=== PATIENT | female | born 1935 | race African-American/Black ===

== ENCOUNTER 2018-04-01 11:25 | Inpatient (IN) | payer OTHER ==
[~2018-04-01] VITALS: Ht 170.2 cm; Wt 106.4 kg
[~2018-04-01 11:25] MED LIST: APAP650 PO; ASPIR 8181 MG PO; HYDROCHLOROTHIA25 M1 PO; LEVOTHYROXINE100 MC1 BUCCAL; SIMVASTATIN40 MG PO; ULTRAM 50MG TAB50 MG PO
[2018-04-01 11:56] LABS: HEMOGLOBIN 15.9 gm/dL (12.0-15.0); MCH 28.8 pg (26.0-34.0); MCV 87.3 fL (80.0-100.0); MPV 8.8 fl. (7.2-11.1); RBC 5.5 mil/uL (4.20-5.00); RDW-CV 14.9 % (10.5-14.5); WBC 5.2 thou/uL (4.0-11.0)
[2018-04-01 12:12] LABS: CALCIUM 9.9 mg/dL (8.5-10.1)
[2018-04-01 12:17] LABS: ALBUMIN 3.7 g/dL (3.4-5.0); TOTAL BILIRUBIN 0.5 mg/dL (<0.1-1.0); TOTAL PROTEIN 7.8 g/dL (6.4-8.2)
[2018-04-01 12:34] VITALS: BP 140/95
--- NOTE | 2018-04-01 16:02 | EKG ---
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
--- NOTE | 2018-04-01 17:15 | NUR ---
PATIENT TO 209 VIA BED REPORT GIVEN AT BEDSIDE VITAL SIGNS TAKEN-HR 43 PATIENT WITHOUT C/O PAIN CALL LIGHT IN REACH AND INSTRUCTION GIVEN
--- NOTE | 2018-04-01 17:25 | NUR ---
PATIENT A AND O X 4 BUT DROWSY SB/JUNCTIONAL RATE 30-40S LOW 20 LUNGS CTA/DIM IN BASES O2 2L NC NOT VOIDED SINCE THIS AM LAST BM UNKNOWN BEDREST AT THIS TIME IV L AC 20 GA 1/2 NS AT 75CC/HR L UPPER CHEST INC LIABILITY CLAIMS REPRESENTATIVE- DURABOND INTACT
--- NOTE | 2018-04-01 17:45 | NUR ---
DR NUNEZ NOTIFIED OF PATIENTS STATUS SB/JUNCTIONAL CONSISTENTLY HR 30S ORDERS GIVEN TO NOTIFY DR IF SB AND SYMPTOMATIC WILL CONT TO MONITOR
--- NOTE | 2018-04-01 18:00 | NUR ---
DR NUNEZ NOTIFIED OF PATIENTS STATUS AND REQUEST TO MOVE TO ICU ORDERS TO MOVE TO ICU
[2018-04-01 18:12] VITALS: BP 150/76
--- NOTE | 2018-04-01 18:15 | NUR ---
REPORT GIVEN TO ICU PATIENT AND BELONGINGS MOVED TO ICU BED 2 DAUGHTER JOSSELIN NOTIFIED OF TRANSFER TO ICU
--- NOTE | 2018-04-01 18:23 | CARD ---
[address] [address] CARDIAC CATH REPORT Name: ULISES TAVERA Room: [facility] IN M.R.#: [id number] Admission: 04/01/18 Attend Phys: Dwight Woods MD, F Discharge: Date of : 37 Report #: [id number] THIS REPORT FOR: //name// APPROVED REPORT Study performed: 04/01/2018 13:22:41 Patient Status: In-Patient Room #: Exam: remove pacemaker and leads Indications: atrial lead dislodgement The patient is a 83 year-old female with a history of Sick Sinus Syndrome. Explanted Devices: permanent pacemaker and leads Procedure The patient underwent informed consent. We discussed the details of the procedure including the risks, which include, but not limited to bleeding, infection, vascular damage, cardiac perforation, and pneumothorax. She understood these risks and was willing to proceed. As such, she was brought to the EP/Cardiac Catheterization laboratory in a fasting and sedated state and prepped and draped in a sterile fashion, received IV antibiotics prior to initiation of the procedure and a venogram was performed showing patency of the left axillary vein. The patient underwent conscious sedation, with no related complications. The patient was brought to the EP/Cardiac Catheterization laboratory and the left chest and shoulder were prepped and draped in a sterile manner. During this case, Fluoroscopy and low osmolar contrast were used for imaging. The left subclavian region was infiltrated with 2% Lidocaine subcutaneous anesthesia. A transverse incision was made in the left upper chest cavity. Both leads were noted to be pulled back into the pacemaker pocket. Unable to retract the set screws of the leads. Both leads needed to be advanced and screwed into place. However, this was not an option. It was therefore decided to remove both leads and generator. Complications The patient tolerated the procedure well and there were no complications [place] [address] CARDIAC CATH REPORT Name: ULISES TAVERA Room: [address] IN .R.#: [id number] Admission: 04/01/18 Attend Phys: Dwight Woods MD, F Discharge: Date of : 37 Report #: [id number] Findings Specimens Removed: Yes Estimated Blood Loss: 15 cc Conclusion Removal of pacemaker generator and leads Recommendations New pacemaker and leads will need to be inserted at another setting. <ELECTRONICALLY SIGNED> By: Dwight Woods MD, [facility] 04/01/18 182 22 1823Dnicole Woods MD, FAC /INF
--- NOTE | 2018-04-01 18:32 | NUR ---
PATIENT A AND O X 4, DROWSY SB/JUNCTIONAL 30S-40S LUNGS CTA/DIM IN BASES 02 2L NC NOT VOIDED SINCE AM LAST BM UNKNOWN BEDREST AT THIS TIME IV L AC 20 GA 1/2 NS AT 75CC/HR L UPPER CHEST AREA INC RICKEY-DURABOND INTACT
--- NOTE | 2018-04-01 18:36 | NUR ---
DR NUNEZ NOITIFIED OF SB/JUNCTIONAL CONSISTENTLY 30S ORDERS TO NOTIFY IF SB/SYMPTOMATIC WILL CONT TO MONITOR
--- NOTE | 2018-04-01 19:02 | NUR ---
PATIENT CAME TO ICU BED 2 WITH NURSING STAFF. HEART RATE IN 30S AND 40S. PATIENT IS VERY HUNGRY AND JUST WANTS FOOD. DINNER ORDERED FOR HER. EDUCATION GIVEN ON CALLING NURSE, FALL PRECAUTIONS IN PLACE. ADMISSION COMPLETED, ASSESSMENT AND VITALS CHARTED. UNABLE TO PLACE A SECOND IV AT THIS TIME, WILL PASS ALONG TO NEXT SHIFT. IV FLUIDS INFUSING. BED IN LOWEST POSITION, CALL LIGHT IN REACH.
[2018-04-01 20:00] VITALS: BP 142/71
[2018-04-01 21:00] VITALS: BP 136/67
[2018-04-01 22:00] VITALS: BP 144/73
[2018-04-01 23:00] VITALS: BP 126/70
[2018-04-02] VITALS (22 sets, daily range): BP systolic 108–179; BP diastolic 57–96
--- NOTE | 2018-04-02 04:33 | NUR ---
PT. REFUSED TO LET THIS RN PLACE A SECOND IV.
--- NOTE | 2018-04-02 05:19 | NUR ---
PT'S HEART RATE HAS DROPPED DOWN TO HIGH 20'S. ASYMPTOMATIC. SINUS JEYSON AT TIMES. ROOM AIR AT THIS TIME. PT. IS HUNGRY, INFORMED HER SHE IS NPO FOR PROCEDURE. REFUSED 2ND IV. WILL CONTINUE TO MONITOR.
--- NOTE | 2018-04-02 11:28 | 2DMMODE ---
[place] [address] 2 D/M-MODE ECHOCARDIOGRAM Name: ULISES TAVERA Room: [address] IN [facility]#: [id number] Admission: 04/01/18 Attend Phys: Dwight Woods MD Discharge: Date of : 37 Date of Service: 04/02/18 1128 Report #: [id number] THIS REPORT FOR: //name// APPROVED REPORT Study performed: 04/02/2018 09:35:33 EXAM: Comprehensive 2D, Doppler, and color-flow Echocardiogram Patient Location: In-Patient Room #: 002 Status: routine BSA: 2.16 HR: 53 bpm BP: 152/753 mmHg Rhythm: NSR Other Information Study Quality: Good Indications Abnormal ECG Pacemaker 2D Dimensions LVEF(%): 83.42 (>50%) IVSd: 10.51 (7-11mm) LVOT Diam: 19.43 (18-24mm) LVDd: 44.17 mm PWd: 8.91 (7-11mm) Ascending Ao: 29.04 (22-36mm) LVDs: 21.15 (25-40mm) Aortic Root: 31.15 mm Gilliland's LVEF: 83.42 % Volumes Left Atrial Volume (Systole) LA ESV Index: 37.60 mL/m2 Aortic Valve AoV Peak Perry.: 1.88 m/s AO Peak Gr.: 14.17 mmHg LVOT Max P.22 mmHg AO Mean Gr.: 6.55 mmHg LVOT Mean P.11 mmHg LVOT Max V: 1.75 m/s AO V2 VTI: 36.23 cm LVOT Mean V: 1.02 m/s NEO (VTI): 2.93 cm2 LVOT V1 VTI: 35.76 [place] [address] 2 D/M-MODE ECHOCARDIOGRAM Name: ULISES TAVERA Room: [address] IN .R.#: [id number] Admission: 04/01/18 Attend Phys: Dwight Woods MD Discharge: Date of : 37 Date of Service: 04/02/18 1128 Report #: [id number] E/A Ratio: 0.97 MV Decel. Time: 227.91 ms MV E Max Perry.: 0.98 m/s MV PHT: 66.09 ms MVA (PHT): 3.33 cm2 TDI E/Lateral E': 8.17 E/Medial E': 12.25 Medial E' Perry.: 0.08 m/s Lateral E' Perry.: 0.12 m/s Pulmonary Valve PV Peak Perry.: 1.00 m/s PV Peak Gr.: 3.99 mmHg Tricuspid Valve TR Peak Gr.: 33.72 mmHg RVSP: 38.00 mmHg Left Ventricle The left ventricle is normal size. There is normal LV segmental wall motion. There is normal left ventricular wall thickness. Left ventricular systolic function is normal. LVEF is 60%. Transmitral Doppler flow pattern suggests restrictive physiology. Right Ventricle The right ventricle is normal size. The right ventricular systolic function is normal. Atria Left atrium is moderately dilated. The right atrium size is normal. Aortic Valve The aortic valve is normal in structure. No aortic regurgitation is present. There is no aortic valvular stenosis. Mitral Valve There is mitral annular calcification. Trace mitral regurgitation. No evidence of mitral valve stenosis. Tricuspid Valve The tricuspid valve is normal in structure. Trace tricuspid regurgitation. The RVSP is 35-40 mmHg. Pulmonic Valve The pulmonary valve is normal in structure. [place] [address] 2 D/M-MODE ECHOCARDIOGRAM Name: ULISES TAVERA Room: [address] IN [facility]#: [id number] Admission: 04/01/18 Attend Phys: Dwight Woods MD Discharge: Date of : 37 Date of Service: 04/02/18 1128 Report #: [id number] Great Vessels The aortic root is normal in size. IVC is normal in size and collapses with >50% inspiration Pericardium There is no pericardial effusion. <Conclusion> The left ventricle is normal size. There is normal left ventricular wall thickness. Left ventricular systolic function is normal. LVEF is 60%. Transmitral Doppler flow pattern suggests restrictive physiology. Left atrium is moderately dilated. There is mitral annular calcification. Trace mitral regurgitation. Trace tricuspid regurgitation. The RVSP is 35-40 mmHg. <ELECTRONICALLY SIGNED> By: Alcides Reed MD, FACC 04/02/18 1128 1128 1128 Alcides Reed MD, FACC /INF
--- NOTE | 2018-04-02 11:39 | EKG ---
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1935 Requested By: Dwight Woods Order Number: [id number] Alexandra MD: Dwight Woods Measurements Intervals [place] Rate: 38 P: PA: QRS: 71 QRSD: 107 T: -78 QT: 543 QTc: 432 Interpretive Statements junctional rhythm Repol abnrm, global ischemia, diffuse leads Compared to ECG 04/01/2018 11:57:54 Ventricular-paced complex(es) or rhythm no longer present Electronically Signed On 04-02-2018 11:39:36 CDT by Dwight Woods [email or web address] <ELECTRONICALLY SIGNED> By: Dwight Woods MD, [facility] 04/02/18 1139 1740 1740 Dwight Woods MD, [facility] /EPI
--- NOTE | 2018-04-02 16:54 | EKG ---
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1935 Requested By: Dwight Woods Order Number: [id number] Alexandra MD: Alcides Reed Measurements Intervals [place] Rate: 60 P: 22 HI: 164 QRS: 63 QRSD: 94 T: -77 QT: 425 QTc: 425 Interpretive Statements Sinus rhythm Junctional escape beats Sinus pause Left atrial enlargement Abnormal T, consider ischemia, diffuse leads Compared to ECG 04/01/2018 11:57:54 Junctional escape beats now present Sinus pause or arrest now present Atrial abnormality now present T-wave abnormality now present Possible ischemia now present Ventricular-paced complex(es) or rhythm no longer present Electronically Signed On 04-02-2018 16:53:56 CDT by Alcides Reed [email or web address] <ELECTRONICALLY SIGNED> By: Alcides Reed MD, [facility] 04/02/18 1653 Alcides Reed MD, [facility] /EPI
--- NOTE | 2018-04-02 17:50 | NUR ---
PT ASSESSMENT CHARTED. VSS THROUGHOUT THE DAY. PACEMAKER PLACEMENT SCHEDULED FOR TOMORROW WITH DOCTOR NUNEZ. CONSENT HAS BEEN SIGNED. MILD PAIN AT INSERTION SITE OF OLD PACEMAKER. NO OTHER COMPLAINTS AT THIS TIME. PATIENT HAS BEEN UP WALKING IN ROOM WITHOUT DIFFICULTY.
[2018-04-02 20:31] LABS: URINE BILIRUBIN NEGATIVE (Negative); URINE BLOOD NEGATIVE (Negative); URINE CLARITY CLEAR; URINE COLOR YELLOW; URINE GLUCOSE-RANDOM NEGATIVE (Negative); URINE KETONES NEGATIVE (Negative); URINE LEUKOCYTES-REFLEX NEGATIVE (Negative); URINE NITRITE-REFLEX NEGATIVE (Negative); URINE PROTEIN NEGATIVE (Negative)
[2018-04-03] VITALS (12 sets, daily range): BP systolic 125–178; BP diastolic 53–93
--- NOTE | 2018-04-03 05:40 | NUR ---
ASSUMED CARE OF PT AT 1900 PT ALERT AND ORIENTED X4 VS AND ASSESSMENT AT PTS BASELINE. LEFT CHEST SURGICAL WOUND CDI. SB ON THE MONITOR PT DENIED ANY COMPLAINTS AND SLEPT THROUGH THE NIGHT.WILL CONTINUE PLAN OF CARE.
[2018-04-03 10:28] LABS: HEMATOCRIT 46.3 % (37.0-47.0); HEMOGLOBIN 15.1 gm/dL (12.0-15.0); MCH 28.7 pg (26.0-34.0); MCHC 32.5 g/dL (28.0-37.0); MCV 88.4 fL (80.0-100.0); RBC 5.24 mil/uL (4.20-5.00); RDW-CV 14.9 % (10.5-14.5)
[2018-04-03 10:32] LABS: CALCIUM 9.7 mg/dL (8.5-10.1); CREATININE 0.9 mg/dL (0.6-1.3); POTASSIUM 3.9 mmol/L (3.5-5.1)
[2018-04-03 10:34] LABS: APTT 27.5 Seconds (25.0-31.3); INR 1.1; PROTIME 10.7 Seconds (9.20-11.50)
--- NOTE | 2018-04-03 12:55 | NUR ---
PT LEFT FOR PERMANENT PACEMAKER PLACEMENT AT 1030.
--- NOTE | 2018-04-03 18:08 | NUR ---
PT ASSESSMENT CHARTED. VSS THROUGHOUT THE DAY. PT CAME BACK FROM PACEMAKER PLACEMENT WITHOUT N/V. SHE HAS EATEN 2 MEALS AND IS TOLERATING WELL. A LITTLE DISCOMFORT NOTED IN THE RIGHT UPPER CHEST. PT GIVEN PRN PAIN MEDICATION AND INSTRUCTED TO IMMOBILIZE RIGHT EXTREMITY. PT IS TELEMETRY STATUS.
--- NOTE | 2018-04-03 18:28 | CARD ---
[address] [address] CARDIAC CATH REPORT Name: ULISES TAVERA Room: [address] ADM IN M.R.#: [id number] Admission: 04/01/18 Attend Phys: Dwight Woods MD, F Discharge: Date of : 37 Report #: [id number] THIS REPORT FOR: //name// APPROVED REPORT Study performed: 04/03/2018 10:38:22 Patient Status: In-Patient Room #: Event Personnel: Dwight Woods Stain Remover, Dalia Chery RN Bilingual Medical Assistant, Yonathan Gracia (iTara) Monitor, Snehal Scanlon RTR Scrub, Adriana Burris Monitor, Praveena Slater RN Bilingual Medical Assistant, Yonathan Gracia (R) Scrub, Vera Fernandez RN Bilingual Medical Assistant Exam: Insertion of Dual Chamber Permanent Pacemaker Indications: Sick Sinus Syndrome/Tachy Frederick Syndrome The patient is a 83 year-old female with a history of Symptomatic Bradycardia. Conscious Sedation Start time: 11:45 End Time: 13:20 Fentanyl 100 mcg Versed 5 mg Implanted Devices: dual chamber mri compatible dual chamber biotronic pacemaker Procedure The patient underwent informed consent. We discussed the details of the procedure including the risks, which include, but not limited to bleeding, infection, vascular damage, cardiac perforation, and pneumothorax. She understood these risks and was willing to proceed. As such, she was brought to the EP/Cardiac Catheterization laboratory in a fasting and sedated state and prepped and draped in a sterile fashion, received IV antibiotics prior to initiation of the procedure and a venogram was performed showing patency of the right axillary vein. The patient underwent conscious sedation, with no related complications. The patient was brought to the EP/Cardiac Catheterization laboratory and the right chest and shoulder were prepped and draped in a sterile manner. During this case, Fluoroscopy and low osmolar contrast were used for imaging. The right subclavian region was infiltrated with 2% Lidocaine subcutaneous anesthesia. A transverse incision was made in the right [place] [address] CARDIAC CATH REPORT Name: ULISES TAVERA Room: [address] IN .R.#: [id number] Admission: 04/01/18 Attend Phys: Dwight Woods MD, F Discharge: Date of : 36 Report #: [id number] The subcutaneous pocket was formed via blunt dissection. Percutaneous venous access was achieved and an introducer sheath was inserted into the right Subclavian vein. Sheaths were positions using the modified Seldinger technique Through the introducer sheaths the atrial and ventricular lead wires were positioned in the right atrial appendage and right ventricular apex respectively. Utilizing fluoroscopic guidance, the atrial and ventricular lead wires were advanced over the wires and positioned in the right atria and right ventricle respectively. Capturing and sensing thresholds were verified. Electrode Parameters P Wave: 2.5 mv R Wave: 8 mv Atrial Threshold: 1.0 v @ 0.4 ms Ventricular Threshold: 0.6 v @ 0.4 ms Dual Chamber The atrial and ventricular leads were then secured using 0 silk sutures. The subcutaneous pocket was irrigated with ancef antibiotic solution.The atrial and ventricular leads were attached to the appropriate receptacles on the pulse generator and set screws firmly tightened to insure adequate contact and stability. The lead and pulse generator were placed into the subcutaneous pocket. Sharp and sponge counts were confirmed to be correct. At this time the pocket was closed subcutaneously with a 0 Vicryl and the skin was closed with a 4.0 Vicryl. The operative site was dressed in sterile fashion with skin affix and the patient was transferred to the floor in stable condition. Complications The patient tolerated the procedure well and there were no complications associated with the procedure. Findings Estimated Blood Loss: 15 cc Conclusion successful placement of a dual chamber pacemaker and leads <ELECTRONICALLY SIGNED> By: Dwight Woods MD, [facility] 04/03/181827 27 27Daotis Woods MD, FAC /INF
[2018-04-04 04:00] VITALS: BP 140/65
--- NOTE | 2018-04-04 05:44 | NUR ---
PT. TAKEN FOR 2 VIEW XRAY AT THIS TIME.
--- NOTE | 2018-04-04 05:45 | NUR ---
PT. PROGRESSING TOWARDS GOALS. NO C/O PAIN THIS SHIFT. ROOM AIR. REMAINS A-PACED WITH OCCASIONAL V-PACED SPIKES. PLAN TO DC TO HOME TODAY. WILL CONTINUE TO MONITOR.
--- NOTE | 2018-04-04 06:02 | NUR ---
PT. BACK FROM XRAY AT THIS TIME
[2018-04-04 08:00] VITALS: BP 153/78
--- NOTE | 2018-04-04 11:10 | NUR ---
PT DISCHARGED TO HOME. DISCHARGE INSRUCTIONS TO PT WITH PAPER COPY. PT VERBALIZED UNDERSTANDING. NO NEW PRESCRIPTIONS. IV ACCESS REMOVED FORM R HAND. PT ESCORTED BY THIS NURSE TO DAUGHTER'S VEHICLE.
--- NOTE | 2018-04-04 11:32 | EKG ---
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1935 Requested By: Dwight Woods Order Number: [id number] Reading MD: Ruslan Bowling Measurements Intervals [place] Rate: 65 P: 65 [place]: 224 QRS: 55 QRSD: 94 T: -57 QT: 420 QTc: 437 Interpretive Statements Sinus rhythm Prolonged [place] interval Left atrial enlargement Abnormal T, consider ischemia, diffuse leads Compared to ECG 04/02/2018 09:58:45 First degree AV block now present Sinus pause or arrest no longer present T-wave abnormality still present Possible ischemia still present Electronically Signed On 04-04-2018 11:32:32 CDT by Ruslan Bowling [email or web address] <ELECTRONICALLY SIGNED> By: Ruslan Bowling MD, FAC 04/04/18 1132 0757 0757 Ruslan Bowling MD, [facility] /EPI
--- NOTE | 2018-04-07 18:18 | H ---
[address] [address] HISTORY AND PHYSICAL Name: ULISES TAVERA Room: [address] IN M.R.#: [id number] Admission: 04/01/18 Attend Phys: Dwight Woods MD, F Discharge: 04/04/18 Date of : 37 Report #: [id number] THIS REPORT FOR: //name// CC: Dwight Mars DO DATE OF SERVICE: 04/01/2018 HISTORY OF THE PRESENT ILLNESS: The patient is an 83-year-old single black female who was brought to the Outpatient Department to undergo repositioning of the chronic atrial pacing lead. The patient presented in 2015 with fatigue and shortness of breath. Echocardiogram and nuclear stress test are unremarkable. She is felt to have sick sinus syndrome. I implanted a permanent dual-chamber MRI compatible Medtronic pacemaker at [facility] in February 2016. I saw her a month later and her pacemaker is working fine. She last checked her pacemaker over the phone in May 2017 and the pacemaker is working fine. Recently, she complained of left shoulder pain. She actually went to the Emergency Room in [place], [place]. The atrial lead was found to be dislodged. The device was interrogated by Medtronic and at the time, the atrial lead was not capturing. I actually saw her in the office recently and the ventricular lead appeared to be functioning normally. She is felt to have dislodgement of the atrial lead. I recommended attempts at repositioning the atrial lead. Recently, she denied any chest pain, shortness of breath, palpitations, syncope. She does complain of pain in the left arm and over the pacemaker generator. She has had no fever recently or trauma. PAST MEDICAL HISTORY: Significant for hip surgery, hysterectomy, hypertension and hyperlipidemia. MEDICATIONS: Include aspirin a day 81 mg, although she stopped a week ago, hydrochlorothiazide, Synthroid and tramadol. ALLERGIES: She has no known drug allergies. FAMILY HISTORY: Not significant. SOCIAL HISTORY: She is single, lives in [place], [place] by herself. She smokes about a half pack a day. No alcohol abuse. REVIEW OF SYSTEMS: She has had no history of stroke or asthma. She had previous ablation of her thyroid with radioactive iodine, is on thyroid replacement. She has no history of peptic ulcer disease, liver disease, kidney disease, cancer, psychiatric illness or chronic skin condition. PHYSICAL EXAMINATION: [place] [address] HISTORY AND PHYSICAL Name: ULISES TAVERA Room: [address] IN [facility].#: [id number] Admission: 04/01/18 Attend Phys: Dwight Woods MD, F Discharge: 04/04/18 Date of : 37 Report #: [id number] GENERAL: Revealed an elderly black female who appeared in no distress. VITAL SIGNS: Showed a blood pressure 130/80 and pulse is 60. HEENT: She is anicteric. Mucous membranes moist. NECK: Veins not distended. CHEST: Clear to auscultation. CARDIOVASCULAR: Regular rate and rhythm. ABDOMEN: Soft and nontender. EXTREMITIES: Had no edema. SKIN: Warm, dry. NEUROLOGICAL: Nonfocal. IMPRESSION AND RECOMMENDATIONS: 1. Sick-sinus syndrome. The patient is 100% atrial paced with the lead in place. 2. Atrial displacement. Recommend repositioning of atrial lead. 3. Hypertension. The patient on a diuretic. 4. Tobacco abuse. Recommend she stop smoking. 5. Hyperlipidemia. The patient is on a statin drug. <ELECTRONICALLY SIGNED> By: Dwight Woods MD, FACC 04/07/18 1818 1348 1422Dnicole Woods MD, FACC /nt
--- NOTE | 2018-04-07 18:19 | D ---
[address] [address] DISCHARGE SUMMARY Name: ULISES TAVERA Room: [address] M.R.#: [id number] Admission: 04/01/18 Attend Phys: Dwight Woods MD, F Discharge: 04/04/18 Date of : 37 Report #: [id number] THIS REPORT FOR: //name// CC: DWIGHT Mars DATE OF SERVICE: 04/04/2018 DISCHARGE DIAGNOSES: 1. Sick sinus syndrome. 2. Pacemaker lead dislodgement. 3. Hypertension. 4. Tobacco abuse. 5. Hyperlipidemia. 6. Hypothyroidism. CONSULTANTS: None. PROCEDURES: 1. Removal of a permanent pacemaker generator and leads. 2. Insertion of a new permanent pacemaker generator and leads. PRIMARY CARE PHYSICIAN: Dr. Dwight Mars in [place], [place]. HISTORY OF PRESENT ILLNESS: The patient is an 83-year-old single black female, who was admitted to repair misplaced pacing lead. The patient presented in 2015 with fatigue and shortness of breath. Echocardiogram and nuclear stress tests were unremarkable. She is felt to have sick sinus syndrome. She was noted to have significant sinus bradycardia with AV disassociation. I implanted a permanent dual chamber Medtronic MRI compatible pacemaker at [facility] in 02/2016. I saw her in the office a month later, and the pacemaker was working normally. She actually performed a home check in 05/2017 showing the pacemaker was functioning normally. Recently, she had some left shoulder pain. She went to the Emergency Room in [place], [place]. The pacemaker was interrogated, and the atrial lead was dislodged and was not functioning at that time. I saw her in the office and agree that the atrial lead needed to be repositioned. The ventricular lead appeared to be functioning normally. The pacemaker was reprogrammed to VVIR in the meantime. I did suggest she see a doctor about her left shoulder pain in case surgery was necessary. She subsequently saw a doctor about the left shoulder pain, but did not require any surgery. She denies any recent chest pain, shortness of breath, palpitations, syncope. She did complain of pain in her left upper arm. PAST MEDICAL HISTORY: Significant for hip surgery, hysterectomy, hypertension, hyperlipidemia. She had previous thyroid [place] [address] DISCHARGE SUMMARY Name: ULISES TAVERA Room: [address] IN [facility].#: [id number] Admission: 04/01/18 Attend Phys: Dwight Woods MD, F Discharge: 04/04/18 Date of : 37 Report #: [id number] MEDICATIONS: Include aspirin, which was stopped a week ago; hydrochlorothiazide; Synthroid; tramadol. ALLERGIES: She had no known drug allergies. PHYSICAL EXAMINATION: VITAL SIGNS: Blood pressure 130/80, pulse 60. CHEST: Clear to auscultation. CARDIAC: Regular rate and rhythm. ABDOMEN: Soft. EXTREMITIES: Had no edema. LABORATORY DATA: She had lab work that revealed sodium 138, creatinine 0.9. Liver function studies were normal. TSH is 0.259, which is actually low, suggesting she is on too much Synthroid. White blood cell count 5.0, hemoglobin 15.1. Urinalysis is negative for protein, negative for leukocytes. HOSPITAL COURSE: The patient was taken to the cardiac catheterization lab on the first hospital day with plans to reposition the chronic atrial pacing lead. However, when the pocket was opened, it was obvious that the patient had pulled the atrial and ventricular leads back. There is very little slack in the ventricular lead. The atrial lead was no longer screwed in. The plan was to add slack to both leads. However, after the generator was removed, both leads had significant amount of coiling in the pocket and apparently had been pulled back. The plan was to reinsert the leads. However, when the sleeve was removed, the active screw in the leads could not be retracted. Therefore, the leads could not be used anymore. It was decided to remove the chronic atrial and ventricular active fixation Medtronic leads. These were removed. Fortunately, even without retracting the screw, the ventricular lead was able to be displaced. The patient tolerated this well. There was no significant bleeding. There is no significant hypotension. An echocardiogram was checked the next day, and there was no significant pericardial effusion with normal ejection fraction of 60% with left atrial enlargement. Initially, it was decided to reinsert the pacemaker at a later date, although the patient had significant junctional rhythm with rates down in the 30s and prolonged sinus bradycardia. It was therefore decided to keep the patient in the hospital. On 04/03, the patient was taken back to the labor relations representative, and I reinserted a Biotronik MRI compatible dual chamber pacemaker using active fixation leads in both the atrium and ventricle. Excessive slack was used. The leads were sutured in place. In addition, the pacemaker generator was sutured in place. The absorbable sutures were used, and skin Affix was applied over the incision. Followup chest x-ray showed no pneumothorax with adequate position of both the atrial and ventricular leads. The lead was tested the next day and both leads were functioning normally. The patient was discharged on her home medications that included aspirin 81 mg a day, hydrochlorothiazide 25 mg a day, Synthroid [facility] [address] [place] [address] DISCHARGE SUMMARY Name: ULISES TAVERA Room: [address] M.R.#: [id number] Admission: 04/01/18 Attend Phys: Dwight Woods MD, F Discharge: 04/04/18 Date of : 37 Report #: [id number] 112 mcg a day, simvastatin 40 mg at bedtime, tramadol as needed for pain. Strongly recommended she attempt to stop smoking. She is not to shower for 48 hours after incision using Dermabond like substance. The patient was not to lift the left arm above her head for the next week. She is not to do any heavy lifting for 6 weeks. She was sent home with a transmitter to check her pacemaker every night at 2:00 a.m. She has an appointment to see me on 04/18 at 11:30 at [facility] office for pacemaker followup. She is felt to have a good prognosis from cardiac standpoint. She was discharged to return to care of Dr. Dwight Mars for routine medical care. She was atrial paced at the time of discharge with a blood pressure of 130/70, pulse 66 and she was afebrile. <ELECTRONICALLY SIGNED> By: Dwight Woods MD, [facility] 04/07/18 [id number] Mitra Woods MD, FACC /nt
== END 2018-04-04 11:11 | disposition home or self-care (01) | DRG 244 ==
LOC: M.CL 11:25 → M.ICU 17:11 → M.TBA-CV 17:11 → M.2W 17:16 → M.ICU 18:10
PROVIDERS: ADMIT Internal Medicine Cardiovascular Disease
DX: T82.118A Breakdown (mechanical) of other cardiac electronic device, initial encounter (principal); I49.5 Sick sinus syndrome; I10 Essential (primary) hypertension; E78.5 Hyperlipidemia, unspecified; E03.9 Hypothyroidism, unspecified; F17.210 Nicotine dependence, cigarettes, uncomplicated; Y83.8 Other surgical procedures as the cause of abnormal reaction of the patient, or of later complication, without mention of misadventure at the time of the procedure; Z90.710 Acquired absence of both cervix and uterus; Y92.89 Other specified places as the place of occurrence of the external cause; Z79.82 Long term (current) use of aspirin; Z79.899 Other long term (current) drug therapy